=== PATIENT | female | born 1975 | race Caucasian/White ===

== ENCOUNTER 2016-10-03 13:42 | Emergency (ER) | payer BC ==
[2016-10-03] MEDS ORDERED: ASPIRIN 81 MG TABLET, CHEWABLE PO ONE (13:58)
--- NOTE | 2016-10-03 14:00 | ER Document Report ---
ED Medical Screen (RME) - General Chief Complaint: Chest Pain Stated Complaint: CHEST PAIN Mode of Arrival: Wheelchair Information source: Patient Notes: Pt presents to the emergency department with complaints of midsternal chest pain that radiates to her jaw and down both arms for the past 4 days. Patient reports she thought it was indigestion and would go away. Reports family history of cardiac disease with her father having an [facility] at 50 years old. She denies past medical history of cardiac disease. I have greeted and performed a rapid initial assessment of this patient. A comprehensive ED assessment and evaluation of the patient, analysis of test results and completion of the medical decision making process will be conducted by additional ED providers. TRAVEL OUTSIDE OF THE U[place] IN LAST 30 DAYS: No - Related Data Allergies/Adverse Reactions: No Known Allergies Allergy (Verified 10/03/16 13:58) Past Medical History - Social History Chew tobacco use (# tins/day): No Frequency of alcohol use: None Drug Abuse: None Pulmonary Medical History: Reports: Hx Bronchitis Renal/ Medical History: Denies: Hx Peritoneal Dialysis Musculoskeltal Medical History: Reports Hx Musculoskeletal Trauma Traumatic Medical History: Reports: Hx Fractures Past Surgical History: Reports: Hx Breast Surgery - BREAST REDUCTION, Hx Orthopedic Surgery - left femur fx - Immunizations Immunizations up to date: Yes Hx Diphtheria, Pertussis, Tetanus Vaccination: Yes - 2012 Physical Exam - Vital signs Vitals: Temp Pulse Resp BP Pulse Ox 98.1 F 84 18 120/78 100 10/03/16 13:52 10/03/16 13:52 10/03/16 13:52 10/03/16 13:52 10/03/16 13:52 Course - Vital Signs Vital signs: Temp Pulse Resp BP Pulse Ox 98.1 F 84 18 120/78 100 10/03/16 13:52 10/03/16 13:52 10/03/16 13:52 10/03/16 13:52 10/03/16 13:52
[2016-10-03 14:28] LABS: ABSOLUTE EOSINOPHILS # (AUTO) 0.1 10^3/uL (0.0-0.6); ABSOLUTE LYMPHOCYTES (AUTO) 2.8 10^3/uL (0.5-4.7); ABSOLUTE MONOCYTES (AUTO) 0.3 10^3/uL (0.1-1.4); ABSOLUTE NEUT (AUTO) 5.1 10^3/uL (1.7-8.2); BASOPHILS % (AUTO) 0.3 % (0-2); EOSINOPHILS % (AUTO) 1.4 % (0-6); HEMATOCRIT 42.1 % (36.0-47.0); HEMOGLOBIN 14.7 g/dL (12.0-15.5); LYMPHOCYTES % (AUTO) 33.6 % (13-45); MEAN CORPUSCULAR HEMOGLOBIN 30.2 pg (27.0-33.4); MEAN CORPUSCULAR HGB CONC 34.9 g/dL (32.0-36.0); MEAN CORPUSCULAR VOLUME 86 fl (80-97); MONOCYTES % (AUTO) 3.8 % (3-13); RED BLOOD COUNT 4.88 10^6/uL (3.72-5.28); RED CELL DISTRIBUTION WIDTH 13.2 % (11.5-14.0); SEGMENTED NEUTROPHILS % (AUTO) 60.9 % (42-78); WHITE BLOOD COUNT 8.4 10^3/uL (4.0-10.5)
[2016-10-03 14:48] LABS: ALANINE AMINOTRANSFERASE 31 U/L (9-52); ALBUMIN 4.4 g/dL (3.5-5.0); ALKALINE PHOSPHATASE 92 U/L (38-126); ANION GAP 13 (5-19); ASPARTATE AMINO TRANSFERASE 17 U/L (14-36); BILIRUBIN,DIRECT 0.2 mg/dL (0.0-0.4); BILIRUBIN,TOTAL 0.7 mg/dL (0.2-1.3); BLOOD UREA NITROGEN 12 mg/dL (7-20); CALCIUM 9.7 mg/dL (8.4-10.2); CARBON DIOXIDE 26 mmol/L (22-30); CHLORIDE 103 mmol/L (98-107); CREATINE KINASE 85 U/L (30-135); CREATININE RESULT 0.94 mg/dL (0.52-1.25); GLUCOSE 103 mg/dL (75-110); POTASSIUM 4.5 mmol/L (3.6-5.0); SODIUM 141.6 mmol/L (137-145); TOTAL PROTEIN 7.8 g/dL (6.3-8.2)
[2016-10-03 14:59] LABS: CREATINE KINASE MB 0.44 ng/mL (<4.55)
[2016-10-03 15:00] LABS: TROPONIN I < 0.012 ng/mL
--- NOTE | 2016-10-03 17:16 | EKG REPORT ---
SEVERITY:- BORDERLINE ECG - SINUS RHYTHM IVCD : Confirmed by: Jace Escamilla MD 03-Oct-2016 17:15:36
[2016-10-03 17:43] LABS: APPEARANCE,URINE CLOUDY; BILIRUBIN,URINE NEGATIVE (NEGATIVE); GLUCOSE, URINE NEGATIVE (NEGATIVE); KETONES,URINE TRACE mg/dL (NEGATIVE); LEUKOCYTE ESTERASE,URINE MODERATE (NEGATIVE); NITRITE,URINE NEGATIVE (NEGATIVE); PROTEIN,URINE NEGATIVE (NEGATIVE); URINE SPECIFIC GRAVITY 1.027; UROBILINOGEN,URINE NEGATIVE mg/dL (<2.0)
[2016-10-03] MEDS ORDERED: HYDROCODONE/ACETAMINOPHEN 5-325 MG 6 TAB/DSPK PO PRN (18:28)
[2016-10-03] MEDS ORDERED: CEPHALEXIN 500 MG CAPSULE PO ONE (18:28)
--- NOTE | 2016-10-03 18:29 | ER Document Report ---
ED GI/ - General Chief Complaint: Chest Pain Stated Complaint: CHEST PAIN Time seen by provider: 18:27 Mode of Arrival: Wheelchair Information source: Patient TRAVEL OUTSIDE OF THE [place]. IN LAST 30 DAYS: No - HPI Patient complains to provider of: Abdominal pain Onset: Other - 4 days Timing/Duration: Persistent Quality of pain: Achy Severity at maximum: Moderate Severity in ED: Moderate Pain Level: 3 Location: Epigastric Associated symptoms: Nausea Exacerbated by: Deep breathing, Food Relieved by: Denies Similar symptoms previously: No Recently seen / treated by doctor: No Notes: 10/04/16 02:55 Patient is a 41-year-old female who presents to the emergency room complaining of "chest pain", however when asked for the pain is she points to the epigastric region, symptoms have been going on for the past 4 days, they're dull and achy in nature, worse after eating, and patient reports it hurts when she takes a deep breath, she reports nausea associated with pain but no vomiting or diarrhea, last bowel movement was earlier today and normal, she denies a cough, cold or congestion, no fever or chills, patient reports she eats one meal a day which she has been doing for years - Related Data Allergies/Adverse Reactions: No Known Allergies Allergy (Verified 10/03/16 13:58) Past Medical History - General Information source: Patient - Social History Smoking Status: Never Smoker Chew tobacco use (# tins/day): No Frequency of alcohol use: None Drug Abuse: None Family History: CAD, Hyperlipidemia, Hypertension, Malignancy, Other - AAA Pulmonary Medical History: Reports: Hx Bronchitis Renal/ Medical History: Denies: Hx Peritoneal Dialysis Musculoskeltal Medical History: Reports Hx Musculoskeletal Trauma Traumatic Medical History: Reports: Hx Fractures Past Surgical History: Reports: Hx Breast Surgery - BREAST REDUCTION, Hx Orthopedic Surgery - left femur fx - Immunizations Immunizations up to date: Yes Hx Diphtheria, Pertussis, Tetanus Vaccination: Yes - 2012 Review of Systems - Review of Systems Constitutional: No symptoms reported EENT: No symptoms reported Cardiovascular: No symptoms reported Respiratory: No symptoms reported Gastrointestinal: See HPI Genitourinary: No symptoms reported Female Genitourinary: No symptoms reported Musculoskeletal: No symptoms reported Skin: No symptoms reported Hematologic/Lymphatic: No symptoms reported Neurological/Psychological: No symptoms reported -: Yes All other systems reviewed and negative Physical Exam - Vital signs Vitals: Temp Pulse Resp BP Pulse Ox 98.1 F 84 18 120/78 100 10/03/16 13:52 10/03/16 13:52 10/03/16 13:52 10/03/16 13:52 10/03/16 13:52 Interpretation: Normal - General General appearance: Appears well, Alert - HEENT Head: Normocephalic, Atraumatic Eyes: Normal Pupils: PERRL - Respiratory Respiratory status: No respiratory distress Chest status: Nontender Breath sounds: Normal Chest palpation: Normal - Cardiovascular Rhythm: Regular Heart sounds: Normal auscultation Murmur: No - Abdominal Inspection: Normal Distension: No distension Bowel sounds: Normal Tenderness: Tender - Tender to palpate in the epigastric region Organomegaly: No organomegaly - Back Back: Normal, Nontender - Extremities General upper extremity: Normal inspection, Nontender, Normal color, Normal ROM , Normal temperature General lower extremity: Normal inspection, Nontender, Normal color, Normal ROM , Normal temperature, Normal weight bearing. No: July's sign - Neurological Neuro grossly intact: Yes Cognition: Normal Orientation: AAOx4 Luisa Coma Scale Eye Opening: Spontaneous [place] Coma Scale Verbal: Oriented Luisa Coma Scale Motor: Obeys Commands Luisa Coma Scale Total: 15 Speech: Normal Motor strength normal: LUE, RUE, LLE, RLE Sensory: Normal - Psychological Associated symptoms: Normal affect, Normal mood - Skin Skin Temperature: Warm Skin Moisture: Dry Skin Color: Normal Course - Re-evaluation Re-evalutation: 10/04/16 02:56 Patient with tenderness to palpate in the epigastric region, her symptoms are more consistent with acid reflux or other related epigastric abdominal pain, her cardiac workup is unremarkable, patient is noted to have signs of a urinary tract infection as well, she was given appropriate prescriptions and advised to follow-up with her primary care provider in the next 2-3 days or return if symptoms worsen, patient acknowledges understanding and agreement with this plan - Vital Signs Vital signs: Temp Pulse Resp BP Pulse Ox 97.6 F 64 20 112/85 100 10/03/16 19:04 10/03/16 19:04 10/03/16 19:04 10/03/16 19:04 10/03/16 19:04 - Laboratory Result Diagrams: 10/03/16 14:10 10/03/16 14:10 Laboratory results interpreted by me: 10/03/16 17:21 Urine Ketones TRACE H Urine Blood SMALL H Ur Leukocyte Esterase MODERATE H - Diagnostic Test Radiology reviewed: Image reviewed, Reports reviewed - EKG Interpretation by Me EKG shows normal: Sinus rhythm Rate: Normal Rhythm: NSR Discharge - Discharge Clinical Impression: Epigastric abdominal pain Condition: Stable Disposition: HOME, SELF-CARE Instructions: Abdominal Pain ([facility]) Additional Instructions: Follow up with your primary care provider in one to 2 days. Return to the emergency room immediately if symptoms worsen or any additional concerns. Prescriptions: Cephalexin Monohydrate [Keflex 500 mg Capsule] 500 mg PO BID #20 capsule Esomeprazole Mag Trihydrate [Nexium] 40 mg PO DAILY #30 cap Forms: Return to Work Referrals: DAY BRENNAN PA-C [Primary Care Provider] - Follow up as needed
[2016-10-03 19:04] VITALS: BP 112/85
== END 2016-10-03 19:04 | disposition home or self-care (01) ==
LOC: ER 13:42
DX: R10.13 Epigastric pain (principal); R07.9 Chest pain, unspecified; R11.0 Nausea
CPT/HCPCS: 36415; 71010; 80053; 81001; 82550; 82553; 84484; 84703; 85025; 93005; 93010; 99285

== ENCOUNTER 2017-10-09 12:48 | Emergency (ER) | payer BC ==
[2017-10-09] MEDS ORDERED: NORMAL SALINE 1000 ML 1,000 ML IV ONE (13:12)
[2017-10-09] MEDS ORDERED: ASPIRIN 81 MG TABLET, CHEWABLE PO ONE (13:12)
[2017-10-09 13:34] LABS: ABSOLUTE LYMPHOCYTES (AUTO) 2.3 10^3/uL (0.5-4.7); ABSOLUTE MONOCYTES (AUTO) 0.4 10^3/uL (0.1-1.4); ABSOLUTE NEUT (AUTO) 8.9 10^3/uL (1.7-8.2); BASOPHILS % (AUTO) 0.2 % (0-2); EOSINOPHILS % (AUTO) 0.3 % (0-6); HEMATOCRIT 47.1 % (36.0-47.0); MEAN CORPUSCULAR HEMOGLOBIN 29.5 pg (27.0-33.4); MEAN CORPUSCULAR VOLUME 87 fl (80-97); MONOCYTES % (AUTO) 3.6 % (3-13); PLATELET COUNT 222 10^3/uL (150-450); RED BLOOD COUNT 5.43 10^6/uL (3.72-5.28); RED CELL DISTRIBUTION WIDTH 13.3 % (11.5-14.0); SEGMENTED NEUTROPHILS % (AUTO) 75.9 % (42-78); TOTAL CELLS COUNTED % (AUTO) 100 %; WHITE BLOOD COUNT 11.7 10^3/uL (4.0-10.5)
[2017-10-09 13:57] LABS: ALANINE AMINOTRANSFERASE 21 U/L (9-52); ALBUMIN 4.4 g/dL (3.5-5.0); ALKALINE PHOSPHATASE 77 U/L (38-126); ANION GAP 10 (5-19); ASPARTATE AMINO TRANSFERASE 17 U/L (14-36); BILIRUBIN,DIRECT 0.2 mg/dL (0.0-0.4); BILIRUBIN,TOTAL 0.4 mg/dL (0.2-1.3); BLOOD UREA NITROGEN 10 mg/dL (7-20); CALCIUM 9.7 mg/dL (8.4-10.2); CARBON DIOXIDE 28 mmol/L (22-30); CHLORIDE 103 mmol/L (98-107); CREATINE KINASE 56 U/L (30-135); GLUCOSE 104 mg/dL (75-110); LIPASE 77.9 U/L (23-300); POTASSIUM 4.5 mmol/L (3.6-5.0); SODIUM 141.3 mmol/L (137-145); TOTAL PROTEIN 7.7 g/dL (6.3-8.2)
[2017-10-09 14:10] LABS: CREATINE KINASE MB 0.33 ng/mL (<4.55)
[2017-10-09 14:12] LABS: TROPONIN I < 0.012 ng/mL
[2017-10-09 14:42] LABS: APPEARANCE,URINE CLEAR; BILIRUBIN,URINE NEGATIVE (NEGATIVE); COLOR,URINE COLORLESS; GLUCOSE, URINE NEGATIVE (NEGATIVE); KETONES,URINE NEGATIVE (NEGATIVE); PROTEIN,URINE NEGATIVE (NEGATIVE); URINE SPECIFIC GRAVITY 1.004; UROBILINOGEN,URINE NEGATIVE mg/dL (<2.0)
[2017-10-09 14:43] LABS: LEUKOCYTE ESTERASE,URINE NEGATIVE (NEGATIVE); NITRITE,URINE NEGATIVE (NEGATIVE); URINE AMPHETAMINES SCREEN NEGATIVE; URINE BARBITURATES SCREEN NEGATIVE; URINE BENZODIAZEPINES SCREEN NEGATIVE; URINE COCAINE SCREEN NEGATIVE; URINE MARIJUANA (THC) SCREEN NEGATIVE; URINE METHADONE SCREEN NEGATIVE; URINE PHENCYCLIDINE SCREEN NEGATIVE
--- NOTE | 2017-10-09 15:05 | RADIOLOGY REPORT (SQ) ---
EXAM DESCRIPTION: CTA CHEST COMPLETED DATE/TIME: 10/09/2017 2:32 pm REASON FOR STUDY: syncope chest pain COMPARISON: None. TECHNIQUE: CT scan of the chest performed using helical scanning technique with dynamic intravenous contrast injection. Images reviewed with lung, soft tissue and bone windows. Reconstructed coronal and sagittal MPR images reviewed. Additional 3 dimensional post-processing performed to develop Maximal Intensity Projection images (AL P). All images stored on PACS. All CT scanners at this facility use dose modulation, iterative reconstruction, and/or weight based d osing when appropriate to reduce radiation dose to as low as reasonably achievable (ALARA). [facility]: Dose Right [facility]: CareDose [facility]: Dose Right [facility]: Teradose 4D [facility]: Rise Art CONTRAST TYPE AND DOSE: contrast/concentration: Isovue 370.00 mg/ml; Total Contrast Delivered: 82.0 ml; Total Saline Delivered: 110.1 ml Contrast bolus optimized for the pulmonary arteries. Not diagnostic for the aorta. RENAL FUNCTION: Creatinine: 0.89 RADIATION DOSE: CT Rad equipment meets quality standard of care and radiation dose reduction techniq ues were employed. CTDIvol: 25.9 - 39.7 mGy. DLP: 915 mGy-cm. . LIMITATIONS: None. FINDINGS: LUNGS AND PLEURA: No infiltrates or effusions. AORTA AND GREAT VESSELS: No aneurysm. Contrast bolus not optimized for the aorta. HEART: No pericardial effusion. No significant coronary artery calcifications. PULMONARY ARTERIES: No emboli visualized in the main pulmonary arteries or the segmental branches. HILAR AND MEDIASTINAL STRUCTURES: No identified masses or abnormal nodes. HARDWARE: None in the chest. UPPER ABDOMEN: The liver, spleen, adrenals demonstrate no abnormality. THYROID AND OTHER SOFT TISSUES: No abnormality of the visualized thyroid gland. BONES: Dorsal spondylosis. 3D MIPS: Confirm above findings. OTHER: No other significant finding. IMPRESSION: NORMAL CTA OF THE CHEST. NO PULMONARY EMBOLI. COMMENT: Quality ID # [id number]: Final reports with documentation of one or more dose reduction techniques (e.g., Automated exposure control, adjustment of the mA and/or kV according to patient size, use of iterative reconstruction technique) TECHNICAL DOCUMENTATION: JOB ID: [id number] [employer]- All Rights Reserved Reading location - IP/workstation name: [email or web address]
--- NOTE | 2017-10-09 15:34 | ER Document Report ---
ED General - General Chief Complaint: Passed Out Prior to Arrival Stated Complaint: SYNCOPE Time Seen by Provider: 10/09/17 12:59 TRAVEL OUTSIDE OF THE U.S. IN LAST 30 DAYS: No - HPI Patient complains to provider of: Syncopal episode Notes: Patient coming in for syncopal episode. Patient states she was at work standing went to walk and passed out. Patient states she does not think she hit her head is that it is not hurting at this time. Patient states mild shortness of breath and right-sided chest pain prior to this episode. Patient states recently returned from [place]. Denies any other past medical history denies any fevers chills nausea vomiting. Patient does smoke intermittently. No hormonal placement therapy at this time. No history of DVT PE in the past. A history of cardiac pathology. Patient resting company upon my evaluation. - Related Data Allergies/Adverse Reactions: No Known Allergies Allergy (Verified 10/09/17 13:00) Past Medical History - Social History Smoking Status: Current Every Day Smoker Chew tobacco use (# tins/day): No Frequency of alcohol use: Rare Drug Abuse: None Family History: CAD, Hyperlipidemia, Hypertension, Malignancy, Other - AAA Patient has suicidal ideation: No Patient has homicidal ideation: No Pulmonary Medical History: Reports: Hx Bronchitis Renal/ Medical History: Denies: Hx Peritoneal Dialysis Musculoskeltal Medical History: Reports Hx Musculoskeletal Trauma Traumatic Medical History: Reports: Hx Fractures Past Surgical History: Reports: Hx Breast Surgery - BREAST REDUCTION, Hx Orthopedic Surgery - left femur fx - Immunizations Immunizations up to date: Yes Hx Diphtheria, Pertussis, Tetanus Vaccination: Yes - 2012 Review of Systems - Review of Systems Constitutional: No symptoms reported EENT: No symptoms reported Cardiovascular: Syncope Respiratory: No symptoms reported Gastrointestinal: No symptoms reported Genitourinary: No symptoms reported Female Genitourinary: No symptoms reported Musculoskeletal: No symptoms reported Skin: No symptoms reported Hematologic/Lymphatic: No symptoms reported Neurological/Psychological: No symptoms reported -: Yes All other systems reviewed and negative Physical Exam - Vital signs Vitals: Temp Resp Pulse Ox 97.5 F 23 H 100 10/09/17 13:02 10/09/17 13:02 10/09/17 13:02 Interpretation: Normal - General General appearance: Appears well, Alert - HEENT Head: Normocephalic, Atraumatic Eyes: Normal Pupils: PERRL - Respiratory Respiratory status: No respiratory distress Chest status: Nontender Breath sounds: Normal Chest palpation: Normal - Cardiovascular Rhythm: Regular Heart sounds: Normal auscultation Murmur: No - Abdominal Inspection: Normal Distension: No distension Bowel sounds: Normal Tenderness: Nontender Organomegaly: No organomegaly - Back Back: Normal, Nontender - Extremities General upper extremity: Normal inspection, Nontender, Normal color, Normal ROM , Normal temperature General lower extremity: Normal inspection, Nontender, Normal color, Normal ROM , Normal temperature, Normal weight bearing. No: July's sign - Neurological Neuro grossly intact: Yes Cognition: Normal Orientation: AAOx4 [place] Coma Scale Eye Opening: Spontaneous [place] Coma Scale Verbal: Oriented Luisa Coma Scale Motor: Obeys Commands [place] Coma Scale Total: 15 Speech: Normal Motor strength normal: LUE, RUE, LLE, RLE Sensory: Normal - Psychological Associated symptoms: Normal affect, Normal mood - Skin Skin Temperature: Warm Skin Moisture: Dry Skin Color: Normal Course - Re-evaluation Re-evalutation: 10/09/17 15:36 Patient's orthostatics were positive with the patient becoming dizzy when she stood up. IV fluids were obtained. Because a recent travel CTA was performed that was negative. Patient's laboratory studies only showed hemoconcentration more likely relates to patient's underlying dehydration. Patient was given IV fluids feeling better at this time requested to be discharged home. Denies any critical pathology of the patient's syncopal episode will discharge patient is encouraged follow-up PCP return to the ER for any concerning issues. The patient has syncope as the patient's syncope is not suggestive of pulmonary embolus, cardiac ischemia, aortic dissection, or other serious etiology. Given the extremely low risk of these diagnoses further testing and evaluation for these possibilities does not appear to be indicated at this time. The patient has been instructed to return if the symptoms worsen or change in any way. - Vital Signs Vital signs: Temp Pulse Resp BP Pulse Ox 97.5 F 92 15 115/87 H 89 L 10/09/17 13:02 10/09/17 13:30 10/09/17 14:09 10/09/17 14:09 10/09/17 14:09 - Laboratory Result Diagrams: 10/09/17 12:35 10/09/17 12:35 Laboratory results interpreted by me: 10/09/17 12:35 WBC 11.7 H RBC 5.43 H Hgb 16.0 H Hct 47.1 H Absolute Neutrophils 8.9 H Discharge - Discharge Clinical Impression: Dehydration, Orthostatic syncope Condition: Good Disposition: HOME, SELF-CARE Instructions: Syncopal Episode ([facility]), Orthostatic Hypotension ([facility]), Dehydration ([facility]) Additional Instructions: Your echo today shows that your syncopal episode is more likely due to dehydration. Orthostatics were positive your laboratory studies showed hemoconcentration some your hemoglobin was concentrated now the fluid in the vascular system to disperse it. I would recommend drinking more water or Gatorade or Powerade. Follow-up with your primary care physician for further evaluation return to the ER for any concerning issues. Prescriptions: Ondansetron [Zofran Odt] 4 mg PO Q6 PRN #30 tab.rapdis PRN Reason: For Nausea/Vomiting Forms: Return to Work Referrals: DAY BRENNAN PA-C [Primary Care Provider] - Follow up in 3-5 days
[2017-10-09 16:11] VITALS: BP 111/66
--- NOTE | 2017-10-09 17:19 | EKG REPORT ---
SEVERITY:- ABNORMAL ECG - SINUS RHYTHM LEFT VENTRICULAR HYPERTROPHY : Confirmed by: Jace Escamilla MD 09-Oct-2017 17:18:14
== END 2017-10-09 16:14 | disposition home or self-care (01) ==
LOC: ER 12:48
DX: E86.0 Dehydration (principal); R55 Syncope and collapse; R06.02 Shortness of breath; R07.9 Chest pain, unspecified; F17.200 Nicotine dependence, unspecified, uncomplicated; Z82.49 Family history of ischemic heart disease and other diseases of the circulatory system
CPT/HCPCS: 93005; 99285; 96360; 36415; 82553; 82962; 82550; 83690; 85025; 80053; 81001; 84484; 80307; 71275; 93010; J7030

== ENCOUNTER 2017-10-17 06:37 | Emergency (ER) | payer BC ==
[2017-10-17 07:03] LABS: APPEARANCE,URINE CLEAR; BILIRUBIN,URINE NEGATIVE (NEGATIVE); COLOR,URINE STRAW; GLUCOSE, URINE NEGATIVE (NEGATIVE); KETONES,URINE NEGATIVE (NEGATIVE); LEUKOCYTE ESTERASE,URINE NEGATIVE (NEGATIVE); NITRITE,URINE NEGATIVE (NEGATIVE); PROTEIN,URINE NEGATIVE (NEGATIVE); URINE SPECIFIC GRAVITY 1.003; UROBILINOGEN,URINE NEGATIVE mg/dL (<2.0)
[2017-10-17] MEDS ORDERED: MECLIZINE HCL 25 MG TABLET PO ONE (07:11)
[2017-10-17] MEDS ORDERED: NORMAL SALINE 1000 ML 1,000 ML IV ONE (07:21)
[2017-10-17] MEDS ORDERED: LORAZEPAM INJ 2 MG/1 ML VIAL IV ONE (07:21)
--- NOTE | 2017-10-17 07:27 | ER Document Report ---
ED General - General Chief Complaint: Dizziness Stated Complaint: WEAKNESS,DIZZINESS Time Seen by Provider: 10/17/17 07:06 Mode of Arrival: Ambulatory Information source: Patient Notes: 42-year-old female presents with complaints of dizziness lightheadedness epigastric abdominal pain. pt denies any fevers or chills, notes she had syncopal episode last week, epigastric abdominal pain but not chest pain. pt notes that her dizziness cocurs when she moves her head around and stands up . symptoms worsen with movement to the right TRAVEL OUTSIDE OF THE [place].S. IN LAST 30 DAYS: No - HPI Onset: Last week Onset/Duration: Persistent Quality of pain: Burning Severity: Mild Pain Level: 1 Associated symptoms: Other Exacerbated by: Movement Relieved by: Denies Similar symptoms previously: Yes Recently seen / treated by doctor: Yes - Related Data Allergies/Adverse Reactions: No Known Allergies Allergy (Verified 10/09/17 13:00) Past Medical History - Social History Smoking Status: Never Smoker Cigarette use (# per day): No Chew tobacco use (# tins/day): No Smoking Education Provided: No Family History: CAD, Hyperlipidemia, Hypertension, Malignancy, Other - AAA Pulmonary Medical History: Reports: Hx Bronchitis Renal/ Medical History: Denies: Hx Peritoneal Dialysis Musculoskeltal Medical History: Reports Hx Musculoskeletal Trauma Traumatic Medical History: Reports: Hx Fractures Past Surgical History: Reports: Hx Breast Surgery - BREAST REDUCTION, Hx Orthopedic Surgery - left femur fx - Immunizations Immunizations up to date: Yes Hx Diphtheria, Pertussis, Tetanus Vaccination: Yes - 2012 Review of Systems - Review of Systems Notes: REVIEW OF SYSTEMS: CONSTITUTIONAL : Denies fever, chills, or sweats. Denies recent illness. EENT: Admits sinus pressure CARDIOVASCULAR: Denies chest pain. Denies palpitations or racing or irregular heart beat. Denies ankle edema. RESPIRATORY: Denies cough, cold, or chest congestion. Denies shortness of breath, difficulty breathing, or wheezing. GASTROINTESTINAL: Admits to epigastric abdominal pain GENITOURINARY: Denies difficulty urinating, painful urination, burning, frequency, blood in urine, or discharge. FEMALE GENITOURINARY: Denies vaginal bleeding, heavy or abnormal periods, irregular periods. Denies vaginal discharge or odor. MUSCULOSKELETAL: Denies back or neck pain or stiffness. Denies joint pain or swelling. SKIN: Denies rash, lesions or sores. HEMATOLOGIC : Denies easy bruising or bleeding. LYMPHATIC: Denies swollen, enlarged glands. NEUROLOGICAL: Admits to dizziness lightheadedness PSYCHIATRIC: Denies anxiety or stress. Denies depression, suicidal ideation, or homicidal ideation. ALL OTHER SYSTEMS REVIEWED AND NEGATIVE. PHYSICAL EXAMINATION: GENERAL: Well-appearing, well-nourished and in no acute distress. HEAD: Atraumatic, normocephalic. EYES: Pupils equal round and reactive to light, extraocular movements intact, conjunctiva are normal. ENT: Nares patent, oropharynx clear without exudates. Moist mucous membranes. NECK: Normal range of motion, supple without lymphadenopathy LUNGS: Breath sounds clear to auscultation bilaterally and equal. No wheezes rales or rhonchi. HEART: Regular rate and rhythm without murmurs ABDOMEN: Soft, nontender, nondistended abdomen. No guarding, no rebound. No masses appreciated. Female : deferred Musculoskeletal: Normal range of motion, no pitting or edema. No cyanosis. NEUROLOGICAL: Cranial nerves grossly intact. Normal speech, normal gait. Normal sensory, motor exams positive Rufus-Hallpike to the right and when sitting up PSYCH: Normal mood, normal affect. SKIN: Warm, Dry, normal turgor, no rashes or lesions noted. Dictation was performed using [employer] voice recognition software Physical Exam - Vital signs Vitals: Temp Pulse Resp BP Pulse Ox 98 F 86 18 123/86 H 98 10/17/17 06:44 10/17/17 06:44 10/17/17 06:44 10/17/17 06:44 10/17/17 06:44 Course - Re-evaluation Re-evalutation: 10/17/17 07:26 Patient's presentation is quite consistent with benign positional vertigo she will be given Antivert and Ativan IV fluids CT head lab work pending 10/17/17 08:59 Patient's lab work imaging noted no significant abnormality, Antivert and Ativan have improved symptoms, I will discharge her home with the same, I do believe his benign positional vertigo, she otherwise looks well will be given ENT follow-up very strict return precautions After performing a Medical Screening Examination, I estimate there is LOW risk for INTRACRANIAL HEMORRHAGE, ISCHEMIC CVA, MALIGNANT DYSRHYTHMIA, ACUTE CORONARY SYNDROME, MENINGITIS, PULMONARY EMBOLISM, or SEPSIS thus I consider the discharge disposition reasonable. I have reevaluated this patient multiple times and no significant life threatening changes are noted. The patient and I have discussed the diagnosis and risks, and we agree with discharging home with close follow-up with the understanding that symptoms and presentations can change. We also discussed returning to the Emergency Department immediately if new or worsening symptoms occur. We have discussed the symptoms which are most concerning (e.g., changing or worsening pain, weakness, vomiting, fever) that necessitate immediate return. - Vital Signs Vital signs: Temp Pulse Resp BP Pulse Ox 98 F 74 14 106/62 99 10/17/17 06:44 10/17/17 08:46 10/17/17 08:46 10/17/17 08:46 10/17/17 08:46 - Laboratory Result Diagrams: 10/17/17 07:40 10/17/17 07:40 Laboratory results interpreted by me: 10/17/17 10/17/17 06:50 07:40 Glucose 111 H Direct Bilirubin 0.5 H Urine Blood SMALL H - Diagnostic Test Radiology reviewed: Image reviewed - CT brain notes no acute abnormality, Reports reviewed Discharge - Discharge Clinical Impression: BPV (benign positional vertigo) Condition: Stable Disposition: HOME, SELF-CARE Instructions: Vertigo ([facility]), Dizziness ([facility]) Prescriptions: Lorazepam [Ativan 1 mg Tablet] 1 mg PO Q4 PRN #20 tab PRN Reason: Meclizine HCl [Antivert 25 mg Tablet] 25 mg PO TID PRN #21 tablet PRN Reason: Forms: Return to Work Referrals: DAY BRENNAN PA-C [Primary Care Provider] - Follow up in 3-5 days MARILYNN ESPINOSA DO [ASSOCIATE] - Follow up tomorrow
[2017-10-17 08:05] LABS: ABSOLUTE EOSINOPHILS # (AUTO) 0.1 10^3/uL (0.0-0.6); ABSOLUTE MONOCYTES (AUTO) 0.4 10^3/uL (0.1-1.4); ABSOLUTE NEUT (AUTO) 5.3 10^3/uL (1.7-8.2); BASOPHILS % (AUTO) 0.4 % (0-2); EOSINOPHILS % (AUTO) 1.7 % (0-6); HEMATOCRIT 41.8 % (36.0-47.0); HEMOGLOBIN 14.5 g/dL (12.0-15.5); LYMPHOCYTES % (AUTO) 25.9 % (13-45); MEAN CORPUSCULAR HEMOGLOBIN 29.9 pg (27.0-33.4); MEAN CORPUSCULAR HGB CONC 34.6 g/dL (32.0-36.0); MEAN CORPUSCULAR VOLUME 86 fl (80-97); MONOCYTES % (AUTO) 4.7 % (3-13); PLATELET COUNT 212 10^3/uL (150-450); RED BLOOD COUNT 4.84 10^6/uL (3.72-5.28); RED CELL DISTRIBUTION WIDTH 13.2 % (11.5-14.0); SEGMENTED NEUTROPHILS % (AUTO) 67.3 % (42-78); TOTAL CELLS COUNTED % (AUTO) 100 %; WHITE BLOOD COUNT 7.9 10^3/uL (4.0-10.5)
--- NOTE | 2017-10-17 08:24 | RADIOLOGY REPORT (SQ) ---
EXAM DESCRIPTION: CT HEAD WITHOUT COMPLETED DATE/TIME: 10/17/2017 8:06 am REASON FOR STUDY: vertigo COMPARISON: None. TECHNIQUE: Axial images acquired through the brain without intravenous contrast. Images reviewed wi th bone, brain and subdural windows. Additional sagittal and coronal reconstructions were generated. Images stored on PACS. All CT scanners at this facility use dose modulation, iterative reconstruction, and/or weight based d osing when appropriate to reduce radiation dose to as low as reasonably achievable (ALARA). [facility]: Dose Right [facility]: CareDose [facility]: Dose Right [facility]: Teradose 4D [facility]: [employer] RADIATION DOSE: CT Rad equipment meets quality standard of care and radiation dose reduction techniq ues were employed. CTDIvol: 48.5 mGy. DLP: 855 mGy-cm. mGy. LIMITATIONS: None. FINDINGS: VENTRICLES: Normal size and contour. CEREBRUM: No masses. No hemorrhage. No midline shift. No evidence for acute infarction. Normal gra y/white matter differentiation. No areas of low density in the white matter. CEREBELLUM: No masses. No hemorrhage. No alteration of density. No evidence for acute infarction. EXTRAAXIAL SPACES: No fluid collections. No masses. ORBITS AND GLOBE: No intra- or extraconal masses. Normal contour of globe without masses. CALVARIUM: No fracture. PARANASAL SINUSES: No fluid or mucosal thickening. SOFT TISSUES: No mass or hematoma. OTHER: No other significant finding. IMPRESSION: NORMAL BRAIN CT WITHOUT CONTRAST. EVIDENCE OF ACUTE STROKE: NO. COMMENT: Quality ID # [id number]: Final reports with documentation of one or more dose reduction techniques (e.g., Automated exposure control, adjustment of the mA and/or kV according to patient size, use of iterative reconstruction technique) TECHNICAL DOCUMENTATION: JOB ID: [id number] [employer]- All Rights Reserved Reading location - IP/workstation name: [email or web address]
[2017-10-17 08:27] LABS: ALANINE AMINOTRANSFERASE 25 U/L (9-52); ALBUMIN 4.2 g/dL (3.5-5.0); ALKALINE PHOSPHATASE 64 U/L (38-126); ANION GAP 10 (5-19); ASPARTATE AMINO TRANSFERASE 18 U/L (14-36); BILIRUBIN,DIRECT 0.5 mg/dL (0.0-0.4); BILIRUBIN,TOTAL 0.6 mg/dL (0.2-1.3); BLOOD UREA NITROGEN 15 mg/dL (7-20); CALCIUM 9.7 mg/dL (8.4-10.2); CARBON DIOXIDE 26 mmol/L (22-30); CHLORIDE 104 mmol/L (98-107); CREATINE KINASE 41 U/L (30-135); GLUCOSE 111 mg/dL (75-110); POTASSIUM 4.7 mmol/L (3.6-5.0); SODIUM 139.7 mmol/L (137-145); TOTAL PROTEIN 7.5 g/dL (6.3-8.2)
[2017-10-17 08:39] LABS: CREATINE KINASE MB < 0.22 ng/mL (<4.55); TROPONIN I < 0.012 ng/mL
[2017-10-17 08:47] VITALS: BP 106/62
== END 2017-10-17 09:12 | disposition home or self-care (01) ==
LOC: ER 06:37
DX: H81.10 Benign paroxysmal vertigo, unspecified ear (principal); R10.13 Epigastric pain; J34.89 Other specified disorders of nose and nasal sinuses
CPT/HCPCS: 99284; 96361; 96374; 36415; 82553; 82550; 85025; 81025; 80053; 81001; 84484; 70450; J2060; J7030

== ENCOUNTER 2018-08-08 10:59 | Emergency (ER) | payer SELFPAY ==
[2018-08-08] MEDS ORDERED: SUCRALFATE SUSP 1 GM/10 ML UDCUP PO ONE (12:43)
[2018-08-08] MEDS ORDERED: FAMOTIDINE INJ/PF 20 MG/2 ML SDV IV ONE (12:43)
--- NOTE | 2018-08-08 12:46 | ER Document Report ---
ED Medical Screen (RME) - General Chief Complaint: Chest Pain Stated Complaint: CHEST PAIN Time Seen by Provider: 08/08/18 12:43 Primary Care Provider: DAY BRENNAN PA-C [Primary Care Provider] - Follow up as needed Notes: Patient is a 42-year-old female presents to the emergency department complaining of generalized epigastric pain that started on Wednesday. Patient states it is achy in nature and sometimes "hurts when I swallow." Patient's denying any choking episodes or any feeling of a foreign body sensation in her throat or lower esophagus. Patient states she believes that she also has a sinus inf ection but she has had intermittent pain in her left jaw. Patient states at times she feels as though the epigastric pain radiates to her middle back. Patient does admit to an extensive history of GERD. States she takes daily Pepcid which at times does not relieve her acid indigestion. Past medical history: GERD Medications: Pepcid Allergies: None Last menstrual period 07/12/2089 GENERAL: Alert, interacts well. No acute distress. ABDOMEN: Soft, no McBurney's point tenderness, no Malik sign noted. Non- distended. Bowel sounds present in all 4 quadrants. Generalized epigastric pain radiating up to her center chest. BACK: no cervical, thoracic, lumbar midline tenderness. No saddle anesthesia, normal distal neurovascular exam. No CVA tenderness noted bilaterally I have greeted and performed a rapid initial assessment of this patient. A comprehensive ED assessment and evaluation of the patient, analysis of test results and completion of the medical decision making process will be conducted by additional ED providers. TRAVEL OUTSIDE OF THE [place] IN LAST 30 DAYS: No - Related Data Allergies/Adverse Reactions: No Known Allergies Allergy (Verified 08/08/18 11:01) Past Medical History - Social History Chew tobacco use (# tins/day): No Frequency of alcohol use: Occasional Drug Abuse: None Pulmonary Medical History: Reports: Hx Bronchitis Renal/ Medical History: Denies: Hx Peritoneal Dialysis Musculoskeltal Medical History: Reports Hx Musculoskeletal Trauma Psychiatric Medical History: Reports: Hx Depression Traumatic Medical History: Reports: Hx Fractures Past Surgical History: Reports: Hx Breast Surgery - BREAST REDUCTION, Hx Ortho pedic Surgery - left femur fx - Immunizations Immunizations up to date: Yes Hx Diphtheria, Pertussis, Tetanus Vaccination: Yes - 2012 Physical Exam - Vital signs Vitals: Temp Pulse Resp BP Pulse Ox 97.6 F 89 22 H 144/84 H 100 08/08/18 11:19 08/08/18 11:19 08/08/18 11:19 08/08/18 11:19 08/08/18 11:19 Course - Vital Signs Vital signs: Temp Pulse Resp BP Pulse Ox 97.6 F 89 22 H 144/84 H 100 08/08/18 11:19 08/08/18 11:19 08/08/18 11:19 08/08/18 11:19 08/08/18 11:19 Doctor's Discharge - Discharge Referrals: DAY BRENNAN PAJoshC [Primary Care Provider] - Follow up as needed
--- NOTE | 2018-08-08 13:16 | EKG REPORT ---
SEVERITY:- NORMAL ECG - SINUS RHYTHM : Confirmed by: Jace Escamilla MD 08-Aug-2018 13:16:16
[2018-08-08 13:32] LABS: ABSOLUTE BASOPHILS # (AUTO) 0.1 10^3/uL (0.0-0.2); ABSOLUTE EOSINOPHILS # (AUTO) 0.1 10^3/uL (0.0-0.6); ABSOLUTE LYMPHOCYTES (AUTO) 2.6 10^3/uL (0.5-4.7); ABSOLUTE MONOCYTES (AUTO) 0.3 10^3/uL (0.1-1.4); BASOPHILS % (AUTO) 0.5 % (0-2); HEMATOCRIT 44.2 % (36.0-47.0); HEMOGLOBIN 15.4 g/dL (12.0-15.5); LYMPHOCYTES % (AUTO) 26.2 % (13-45); MEAN CORPUSCULAR HEMOGLOBIN 29.8 pg (27.0-33.4); MEAN CORPUSCULAR HGB CONC 34.8 g/dL (32.0-36.0); MEAN CORPUSCULAR VOLUME 86 fl (80-97); MONOCYTES % (AUTO) 3.1 % (3-13); PLATELET COUNT 211 10^3/uL (150-450); RED BLOOD COUNT 5.15 10^6/uL (3.72-5.28); RED CELL DISTRIBUTION WIDTH 13.4 % (11.5-14.0); SEGMENTED NEUTROPHILS % (AUTO) 69.2 % (42-78); TOTAL CELLS COUNTED % (AUTO) 100 %; WHITE BLOOD COUNT 10.1 10^3/uL (4.0-10.5)
[2018-08-08 13:45] LABS: ALANINE AMINOTRANSFERASE 22 U/L (9-52); ALBUMIN 4.7 g/dL (3.5-5.0); ALKALINE PHOSPHATASE 79 U/L (38-126); ANION GAP 8 (5-19); APPEARANCE,URINE CLEAR; ASPARTATE AMINO TRANSFERASE 23 U/L (14-36); BILIRUBIN,DIRECT 0.2 mg/dL (0.0-0.4); BILIRUBIN,TOTAL 0.5 mg/dL (0.2-1.3); BILIRUBIN,URINE NEGATIVE (NEGATIVE); BLOOD UREA NITROGEN 12 mg/dL (7-20); CALCIUM 9.5 mg/dL (8.4-10.2); CARBON DIOXIDE 27 mmol/L (22-30); CHLORIDE 104 mmol/L (98-107); COLOR,URINE YELLOW; GLUCOSE 88 mg/dL (75-110); GLUCOSE, URINE NEGATIVE (NEGATIVE); KETONES,URINE NEGATIVE (NEGATIVE); LEUKOCYTE ESTERASE,URINE NEGATIVE (NEGATIVE); LIPASE 91.6 U/L (23-300); NITRITE,URINE NEGATIVE (NEGATIVE); POTASSIUM 4.5 mmol/L (3.6-5.0); PROTEIN,URINE NEGATIVE (NEGATIVE); SODIUM 139.3 mmol/L (137-145); TOTAL PROTEIN 8.1 g/dL (6.3-8.2); URINE SPECIFIC GRAVITY 1.011; UROBILINOGEN,URINE NEGATIVE mg/dL (<2.0)
[2018-08-08] MEDS ORDERED: LIDOCAINE 2% VISCOUS SOLN 20 ML UDCUP PO ONE (14:47)
[2018-08-08] MEDS ORDERED: MAG HYDROX/AL HYDROX/SIMETH SUSP 30 ML UDCUP PO ONE (14:47)
[2018-08-08] MEDS ORDERED: METOCLOPRAMIDE HCL ORAL SOLN 10 MG/10 ML UDCUP PO ONE (14:47)
--- NOTE | 2018-08-08 14:47 | ER Document Report ---
ED General - General Chief Complaint: Chest Pain Stated Complaint: CHEST PAIN Time Seen by Provider: 08/08/18 12:43 Primary Care Provider: PADMINI PRATT MD [ACTIVE STAFF] - Follow up in 1 week TRAVEL OUTSIDE OF THE [place] IN LAST 30 DAYS: No - HPI Onset: Other - Is a 42-year-old otherwise healthy female who presents for evaluation of burning pain in the left upper abdomen. Through triage she had labs ordered as well as the administration of Carafate. She denies any chest pain, shortness of breath, lightheadedness, diaphoresis, constipation dysuria or episodes of emesis notes that she has had something similar but never this bad in the past. Not taking anything for etc. been evaluated by a silk screen etcher for this pain in the past. - Related Data Allergies/Adverse Reactions: No Known Allergies Allergy (Verified 08/08/18 11:01) Past Medical History - General Information source: Patient - Social History Smoking Status: Current Every Day Smoker Chew tobacco use (# tins/day): No Frequency of alcohol use: Occasional Drug Abuse: None Family History: CAD, Hyperlipidemia, Hypertension, Malignancy, Other - AAA Patient has suicidal ideation: No Patient has homicidal ideation: No Pulmonary Medical History: Reports: Hx Bronchitis Renal/ Medical History: Denies: Hx Peritoneal Dialysis Musculoskeletal Medical History: Reports Hx Musculoskeletal Trauma Psychiatric Medical History: Reports: Hx Depression Traumatic Medical History: Reports: Hx Fractures Past Surgical History: Reports: Hx Breast Surgery - BREAST REDUCTION, Hx Orthopedic Surgery - left femur fx - Immunizations Immunizations up to date: Yes Hx Diphtheria, Pertussis, Tetanus Vaccination: Yes - 2012 Review of Systems - Review of Systems -: Yes All other systems reviewed and negative Physical Exam - Vital signs Vitals: Temp Pulse Resp BP Pulse Ox 97.6 F 89 22 H 144/84 H 100 08/08/18 11:19 08/08/18 11:19 08/08/18 11:19 08/08/18 11:19 08/08/18 11:19 Interpretation: Normal - General General appearance: Appears well, Alert - HEENT Head: Normocephalic, Atraumatic Eyes: Normal Pupils: PERRL - Respiratory Respiratory status: No respiratory distress Chest status: Nontender Breath sounds: Normal Chest palpation: Normal - Cardiovascular Rhythm: Regular Heart sounds: Normal auscultation Murmur: No - Abdominal Inspection: Normal Distension: No distension Bowel sounds: Normal Tenderness: Nontender Organomegaly: No organomegaly - Back Back: Normal, Nontender - Extremities General upper extremity: Normal inspection, Nontender, Normal color, Normal ROM, Normal temperature General lower extremity: Normal inspection, Nontender, Normal color, Normal ROM, Normal temperature, Normal weight bearing. No: July's sign - Neurological Neuro grossly intact: Yes Cognition: Normal Orientation: AAOx4 [place] Coma Scale Eye Opening: Spontaneous [place] Coma Scale Verbal: Oriented Luisa Coma Scale Motor: Obeys Commands Luisa Coma Scale Total: 15 Speech: Normal Motor strength normal: LUE, RUE, LLE, RLE Sensory: Normal - Psychological Associated symptoms: Normal affect, Normal mood - Skin Skin Temperature: Warm Skin Moisture: Dry Skin Color: Normal Course - Re-evaluation Re-evalutation: 42-year-old female with labs drawn through triage with symptoms suggestive of epigastric pain likely related to gastritis or an underlying ulcer. Her abdominal examination is benign. The Carafate helped only slightly, will administer GI cocktail. We will plan for a negative troponin repeat EKG. On assessment of last patient has no obvious derangement in her lipase, renal function, markers for infection. Believe likely this patient's demonstrating symptoms suggestive of a possible u lcer, will administer a prescription for Carafate as well as omeprazole and encouraged follow-up with silk screen etcher for potential endoscopy. - Vital Signs Vital signs: Temp Pulse Resp BP Pulse Ox 97.6 F 89 10 L 122/94 H 100 08/08/18 11:19 08/08/18 11:19 08/08/18 16:01 08/08/18 16:01 08/08/18 16:01 - Laboratory Result Diagrams: 08/08/18 13:12 08/08/18 13:12 Discharge - Discharge Clinical Impression: Ulcer Gastritis Qualifiers: Gastritis type: unspecified gastritis Chronicity: unspecified Gastritis bleeding: without bleeding Qualified Code(s): K29.70 - Gastritis, unspecified, without bleeding Condition: Good Disposition: HOME, SELF-CARE Instructions: Antacid Therapy ([facility]), Reflux Disease (GERD) ([facility]) Additional Instructions: Your seen today in the emergency department for the pain that you are having with reflux. You had an evaluation including a physical exam, tests of your pancreas, liver, and blood. I think that probably this is related to acid. You have been given a medication to help with your acid. You should take the Prilosec prescribed to you daily. You should take the Carafate 4 times a day while this is bothering you. You can use the Pepcid as needed in addition to these medications for the reflux. Avoid the foods we discussed. Prescriptions: Omeprazole 20 mg PO BID #50 capsule. Sucralfate [Carafate 1 gm Tablet] 1 gm PO ACHS #120 tablet Forms: Smoking Cessation Education Referrals: PADMINI PRATT MD [ACTIVE STAFF] - Follow up in 1 week
[2018-08-08 16:13] VITALS: BP 122/94
== END 2018-08-08 16:21 | disposition home or self-care (01) ==
LOC: ER 10:59
DX: K29.70 Gastritis, unspecified, without bleeding (principal); L98.499 Non-pressure chronic ulcer of skin of other sites with unspecified severity; R10.12 Left upper quadrant pain; F17.200 Nicotine dependence, unspecified, uncomplicated
CPT/HCPCS: 93005; 99284; 96374; 36415; 83690; 85025; 81025; 80053; 81001; 84484; 93010; J3490; S0028